=== PATIENT | male | born 1985 | race Two or more races ===

== ENCOUNTER 2018-03-18 10:33 | Emergency (ER) | payer OTHER ==
[2018-03-18 11:03] LABS: ADD MAN DIFF? NO
[2018-03-18 11:07] LABS: BASO % 1 % (0-3); EOS # 0.1 x10^3/uL (0.0-0.7); EOS % 2 % (0-3); HEMATOCRIT 47.1 % (39.0-53.0); HEMOGLOBIN 16.7 g/dL (13.0-17.5); LYMPH # 2.1 x10^3/uL (1.0-4.8); LYMPH % 38 % (24-48); MEAN CORPUSCULAR HEMOGLOBIN 32 pg (25-35); MEAN CORPUSCULAR HGB CONC 35 g/dL (31-37); MEAN CORPUSCULAR VOLUME 90 fL (79-100); MONO # 0.4 x10^3/uL (0.0-1.1); MONO % 7 % (0-9); NEUT % 53 % (31-73); PLATELET COUNT 191 x10^3/uL (140-400); RED BLOOD COUNT 5.24 x10^6/uL (4.30-5.70); RED CELL DISTRIBUTION WIDTH 12.9 % (11.5-14.5); WHITE BLOOD COUNT 5.6 x10^3/uL (4.0-11.0)
[2018-03-18] MEDS: KETOROLAC 30 MG/ML INJ. IV (11:10)
[2018-03-18 11:18] LABS: ANION GAP 10 (6-14); BLOOD UREA NITROGEN 12 mg/dL (8-26); BUN/CREATININE RATIO 10 (6-20); CALCIUM 9.4 mg/dL (8.5-10.1); CARBON DIOXIDE 28 mmol/L (21-32); CHLORIDE 103 mmol/L (98-107); CREATININE 1.2 mg/dL (0.7-1.3); GFR 68.9; GLUCOSE 126 mg/dL (70-99); POTASSIUM 3.7 mmol/L (3.5-5.1); SODIUM 141 mmol/L (136-145)
[2018-03-18 11:24] LABS: ALBUMIN 4.5 g/dL (3.4-5.0); ALBUMIN/GLOBULIN RATIO 1.5 (1.0-1.7); ALK PHOS 80 U/L (46-116); ALT (SGPT) 95 U/L (16-63); AST (SGOT) 38 U/L (15-37); LIPASE 198 U/L (73-393); TOTAL BILIRUBIN 1.2 mg/dL (0.2-1.0); TOTAL PROTEIN 7.5 g/dL (6.4-8.2)
[2018-03-18] MEDS: IOHEXOL 300 MG/ML 100ML VIAL. IV (11:38)
== END 2018-03-18 12:37 | disposition home or self-care (01) ==
LOC: ER 10:33
DX: R10.31 Right lower quadrant pain (principal)
CPT/HCPCS: 36415; 74177; 80053; 83690; 85025; 96374; 99285-25; J1885; Q9967